=== PATIENT | male | born 1985 | race Caucasian/White ===

== ENCOUNTER 2019-05-26 10:18 | Emergency (ER) | payer SELFPAY ==
--- NOTE | 2019-05-26 10:18 | ECG_ITS ---
APPROVED REPORT Exam: Resting ECG HR:89 bpm ECG Measurements Heart Rate 89 AXES WI 156 P 27 QRSd 76 QRS 65 QT 330 T 28 QTc 401 <Conclusion> Normal sinus rhythm Normal ECG Electronically signed by : Zia Welsh, 05/29/2019 17:19:03
[2019-05-26 10:22] VITALS: BP 166/120; PULSE 94; RESP 20; TEMP 36.7; O2SAT 97; BMI 32.5
[2019-05-26 10:28] VITALS: BMI 32.5
--- NOTE | 2019-05-26 10:29 | XR_ITS ---
PROCEDURE: XR THORACIC SPINE 2V Patient Age:34Y CLINICAL INDICATION: pain left anterior chest pain. Shoulder and neck pain after stretching arms back yesterday.. The COMPARISON: XR CHEST AP from 05/26/2019 XR CERVICAL SPINE 2V from 05/26/2019 FINDINGS: AP lateral and swimmer's view of thoracic spine performed. The thoracic vertebral bodies are intact with normal alignment. No fracture but no compression fracture. Disc spaces are fairly well maintained with only borderline narrowing mid T-spine. Pedicles intact. No perispinal mass IMPRESSION: Thoracic spine intact with no fracture nor acute findings. Dictated by: Chris Mitchell MD 05/26/2019 13:33 Electronically signed by Chris Mitchell MD in [place] 05/26/2019 13:33
--- NOTE | 2019-05-26 10:29 | XR_ITS ---
PROCEDURE: XR CHEST AP Patient Age:34Y CLINICAL HISTORY: pain Left anterior chest, shoulder back and neck pain after stretching arms and back yesterday COMPARISON: XR THORACIC SPINE 2V from 05/26/2019 FINDINGS: AP portable upright chest performed with no previous for comparison. The cardiomediastinal silhouette and pulmonary vascularity are within normal limits. Right menhaz upper normal prominence but overall satisfactory on available views including T-spine series The lungs are clear without infiltrates, suspicious nodules, or pleural effusions. But no pneumothorax but No acute bony abnormalities.. Minor dextrocurvature at the lower T-spine on this chest film appears to be merely positional as it is not evident on the T-spine series from today. IMPRESSION: Nothing definitely acute. Dictated by: Chris Mitchell MD 05/26/2019 14:20 Electronically signed by Chris Mitchell MD in [place] 05/26/2019 14:20
--- NOTE | 2019-05-26 10:29 | XR_ITS ---
PROCEDURE: XR SHOULDER LT MIN 2V Patient Age:34Y CLINICAL INDICATION: pain left anterior chest shoulder and neck pain after stretching arms and back yesterday COMPARISON: No exams were available for comparison FINDINGS: LEFT SHOULDER [id number] internal and external rotation along with Y-view performed the left shoulder appears intact no fracture nor dislocation. Bones well mineralized but glenohumeral joint and AC joint intact. Scapula appears intact but uppermost left ribs and left lung apex unremarkable. No remarkable arthritic changes or erosions but no lesions evident. IMPRESSION: Negative left shoulder. WNL Dictated by: Chris Mitchell MD 05/26/2019 13:51 Electronically signed by Chris Mitchell MD in [place] 05/26/2019 13:51
--- NOTE | 2019-05-26 10:29 | XR_ITS ---
PROCEDURE: XR CERVICAL SPINE 2V Patient Age:34Y CLINICAL INDICATION: pain Left anterior chest, shoulder, neck pain after stretching arms and back yesterday but COMPARISON: XR THORACIC SPINE 2V from 05/26/2019 FINDINGS: Cervical spine intact with no fracture nor subluxation . normal alignment. Normal prevertebral soft tissues but bones wellMineralized but no lesions evident There is mild disc space narrowing with posterior spondylosis/osteophytic ridging developing at C5/6. This slightly indents anterior aspect of cervical spine and likely yield some mild foraminal encroachment. Small accessory calcification just posterior to the spinous process C6 noted but does not appear corticated old and not of significance. The C1-C2 relationships appear normal. A swimmer's view included in shows is normal alignment at C7/T1. Satisfactory relationships. Apices lungs clear. IMPRESSION: The cervical spine intact with no acute findings. No fracture or subluxation. Mild degenerative disc changes and spondylosis developing at C5/6 noted Dictated by: Chris Mitchell MD 05/26/2019 14:16 Electronically signed by Chris Mitchell MD in [place] 05/26/2019 14:16
[2019-05-26 10:40] LABS: Basophils # 0.2 K/mm3 (0-0.2); Basophils % 1.6 % (0.1-2.0); Eosinophils # 0.4 K/mm3 (0.0-0.4); Hemoglobin 17.9 g/dL (14.1-18.0); Lymphocytes # 2.4 K/mm3 (0.7-4.5); Lymphocytes % 16.7 % (10-50); Mean Corpuscular HGB Conc 34.5 g/dL (31.8-35.4); Mean Corpuscular Hemoglobin 32.9 pg (27.0-31.2); Mean Corpuscular Volume 95.6 fl (80-94); Mean Platelet Volume 9.3 fl (7.4-10.4); Monocytes # 0.7 K/mm3 (0.1-1.0); Monocytes % 4.8 % (1.7-9.3); Neutrophils # 10.6 K/mm3 (1.8-7.8); Neutrophils % 73.8 % (37.0-80.0); Platelet Count 197 K/mm3 (142-424); Red Blood Count 5.44 M/mm3 (4.60-6.20); Red Cell Distribution Width 12.8 % (11.5-17.5); White Blood Count 14.4 K/mm3 (4.8-10.8)
[2019-05-26 10:41] LABS: Chloride 102 mmol/L (98-107)
[2019-05-26 10:42] LABS: Potassium 4.5 mmoL/L (3.5-5.1); Sodium 139 mmol/L (136-145)
[2019-05-26 10:44] LABS: Alanine Aminotransferase 63 U/L (12-78); Albumin Level 4.5 g/dl (3.5-5.0); Albumin/Globulin Ratio 1.2 (1.1-1.8); Alkaline Phosphatase 110 U/L (38-126); Anion Gap 14.5 mEq/L (5-15); Aspartate Amino Transferase 42 U/L (17-59); Bilirubin,Total 0.4 mg/dl (0.2-1.3); Blood Urea Nitrogen 19 mg/dl (9-20); Carbon Dioxide 27 mmol/L (22.0-30.0); Creatinine Clearance Estimated 182 mL/min (50-200); Estimated Glomerular Filt Rate 110 ml/min (>60); GFR (African American) 133 ML/MIN (>60); Globulin 3.8 g/dL (1.3-3.2); Total Protein,Serum 8.3 g/dl (6.3-8.2)
[2019-05-26 10:45] LABS: Calcium 9.5 mg/dl (8.4-10.2); Glucose 96 mg/dl (74-100)
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
[2019-05-26 11:37] VITALS: BP 148/87; PULSE 87; RESP 20; TEMP 36.6; O2SAT 98
--- NOTE | 2019-05-26 11:41 | PC.NURSE ---
PT D/C FROM ED WITH SIGNIFICANT OTHER.
== END 2019-05-26 11:40 | disposition home or self-care (01) ==
LOC: ER 12:40
PROVIDERS: Emergency Provider Family Medicine
DX: S43.102A Unspecified dislocation of left acromioclavicular joint, initial encounter (principal); M54.2 Cervicalgia; F17.210 Nicotine dependence, cigarettes, uncomplicated
CPT/HCPCS: 71045; 72040; 72070; 73030; 80053; 85025; 93005; 96374; 96375; 99283

== ENCOUNTER 2020-04-20 11:45 | Emergency (ER) | payer SELFPAY ==
[2020-04-20 12:15] VITALS: BP 117/87; PULSE 73; RESP 20; TEMP 36.7; O2SAT 98; BMI 32.3
--- NOTE | 2020-04-20 12:27 | XR_ITS ---
PROCEDURE: XR KNEE RT 3V CLINICAL INDICATION: DROPPED WATER HEATER ON IT Pain COMPARISON: No exams were available for comparison FINDINGS: No fracture or dislocation. No lytic or blastic change. There is normal mineralization. The joint spaces are well-preserved. No significant degenerative/arthritic changes. No erosive changes evident. Other findings:None. IMPRESSION: No acute findings. Dictated by: Nikolas Wilson MD 04/20/2020 14:10 Nikolas Wilson MD in [place] 04/20/2020 14:10
--- NOTE | 2020-04-20 12:27 | XR_ITS ---
PROCEDURE: XR FOOT RT MIN 3V CLINICAL INDICATION: DROPPED WATER HEATER ON IT Pain COMPARISON: No exams were available for comparison FINDINGS: No fracture or dislocation. No lytic or blastic change. There is normal mineralization. The joint spaces are well-preserved. No significant degenerative/arthritic changes. No erosive changes evident. Other findings:There is a well-circumscribed calcific density along the and lateral aspect of the distal phalanx of the great toe may be due to an old fracture. Small calcific density also present noted lateral to the distal shaft of the 4th metatarsal. IMPRESSION: No acute findings. Dictated by: Nikolas Wilson MD 04/20/2020 14:07 Nikolas Wilson MD in [place] 04/20/2020 14:07
--- NOTE | 2020-04-20 12:27 | XR_ITS ---
PROCEDURE: XR ANKLE RT MIN 3V CLINICAL INDICATION: DROPPED WATER HEATER ON IT Pain following injury COMPARISON: CR XR FOOT RT MIN 3V from 04/20/2020 CR XR TIBIA FIBULA RT 2V from 04/20/2020 FINDINGS: No acute fracture or dislocation is evident. There is a faint curvilinear lucency involving the articular surface of the distal tibia medially. This is of questionable clinical significance but could be related to an area osteochondrosis. Gas in the joint could also cause this appearance. No other significant anomalies evident. IMPRESSION: No acute fracture. Possible area of osteochondrosis of the distal tibia medially Dictated by: Nikolas Wilson MD 04/20/2020 13:53 Nikolas Wilson MD in [place] 04/20/2020 13:53
--- NOTE | 2020-04-20 13:01 | HMH.EDUTC ---
[facility] [place] Disposition Clinical Impression: Lower leg injury Qualifiers: Encounter type: initial encounter Laterality: right Qualified Code(s): S89.91XA - Unspecified injury of right lower leg, initial encounter Disposition: Home, Self-Care Condition on Discharge: Good Instructions: How to Use Crutches, Sprain, How To Perform RICE (Rest, Ice, Compress, Elevate), How to Apply an Ziggy Wrap, DI for Foot Sprain Additional Instructions: *weight bearing as tolerated *RICE, Rest the extremity, Ice 15-20 minutes 3-4 times daily, Compress- wear the ziggy wrap as discussed as much as possible to help reduce swelling and pain, Elevate the extremity when at rest *Ziggy wrap is for support and help control swelling, use it except in the shower. Be sure that is not to tight but not to loose either *Elevate when resting *Ibuprofen every 6-8 hours as needed for pain an inflammation. If need something more can take Tylenol in between doses of Ibuprofen to help Immediately follow up with your family doctor for new or worsening of symptoms, or no noticeable improvement over the next 3-5 days Crutches to get around Call back to the [facility] later this evening for official reading of your xray Straight to ER if any life threatening symptoms Referrals: Chuy Melendez MD [Primary Care Provider] - As needed Time of Disposition: 13:08 Medical Decision Making - Ravi Inquiry Pt receiving controlled substance: No Ravi was queried for this patient: No Vital Signs: 04/20/20 12:15 04/20/20 13:12 Temperature 98.0 F 98.0 F Temperature Source Temporal Artery Scan Pulse Rate 73 Pulse Rate [Right Brachial] 73 Respiratory Rate 20 20 Blood Pressure 117/87 Blood Pressure [Right Arm] 117/87 Blood Pressure Mean [Right Arm] 97 Blood Pressure Source [Right Arm] Automatic Cuff Blood Pressure Position [Right Arm] Sitting 02 Sat by Pulse Oximetry 98 Oxygen Delivery Method Room Air - Radiology Data #1 Image(s): Knee Image Reviewed: Yes I reviewed the patient's radiology image Preliminary Findings: No Fracture Seen #2 Image(s): Tib/Fib Image Reviewed: Yes I reviewed the patient's radiology image Preliminary Findings: No Fracture Seen #3 Image(s): Ankle Image Reviewed: Yes I reviewed the patient's radiology image Preliminary Findings: No Fracture Seen [facility] [place] HPI - General Stated complaint: AC 04/18/20 Hot water heater fell on right leg Time Seen by Provider: 04/20/20 13:02 Mode of Arrival: Ambulatory Source of Information: Patient Limitations: No Limitations Description of Symptoms (Recalled from Triage Doc. by RN): PATIENT STATES THAT HE DROPPED A PARTIALLY FULL WATER HEATER ON HIS RIGHT LEG ON MONDAY. C/O PAIN TO LEFT KNEE, LOWER LEG, ANKLE AND FOOT HEENT Symptoms (Recalled from RN notes): No Resp Symptoms (Recalled from RN notes): No Skin Symptoms (Recalled from RN notes): No MS Symptoms (Recalled from RN notes): Yes Functional Status (Recalled from RN notes): WNL - History of Present Illness Provider Complaint: Patinet state that he was moving a partially full hot water heater on Monday when it dropped back on his right lower leg State that it hit him around the knee area and when down leg, ankle and foot State that every since he has been sore and hurts when he tries to walk on it - Related Data Previous Rx's Medication Instructions Recorded Ketorolac Tromethamine [Toradol 10 mg PO Q6H 5 Days #20 tab 05/26/19 10mg tablet] Tizanidine HCl [Zanaflex 4mg 4 mg PO QID 8 Days #30 tab 05/26/19 tablet] Allergies Allergy/AdvReac Type Severity Reaction Status Date / Time No Known Allergies Allergy Verified 05/26/19 10:29 - Worker's Comp Is this a Worker's Comp case?: No [facility] History - Hepatitis A Screen Drug use history?: No High risk sexual behaviors?: No History of sexually transmitted infection?: No Currently employed?: No Childcare worker?: No Do you have indoor plumbing?: Yes Do you have carmela
[2020-04-20 13:12] VITALS: BP 117/87; PULSE 73; RESP 20; TEMP 36.7; O2SAT 98
== END 2020-04-20 13:20 | disposition home or self-care (01) ==
PROVIDERS: Emergency Provider Nurse Practitioner; PCP Family Medicine
DX: S89.91XA Unspecified injury of right lower leg, initial encounter (principal); W18.09XA Striking against other object with subsequent fall, initial encounter; Y92.89 Other specified places as the place of occurrence of the external cause; F17.210 Nicotine dependence, cigarettes, uncomplicated
CPT/HCPCS: 73562; 73590; 73610; 73630; 99202; G0463